=== PATIENT | female | born 1950 | race Caucasian/White ===

== ENCOUNTER 2018-06-19 08:34 | Outpatient (CLI) | payer MEDICARE ==
--- NOTE | 2018-06-19 15:25 | NM ---
NUCLEAR MEDICINE BRAIN IMAGING: Date: 06/19/18 CLINICAL HISTORY: Parkinson's disease. FINDINGS: There is symmetric uptake of the striata bilaterally with crescent-shaped activity demonstrated bilat erally. IMPRESSION: Normal exam. POS: [facility]
== END 2018-06-19 08:35 | disposition home or self-care (01) ==
LOC: NM 08:34
PROVIDERS: ATTEND Psychiatry & Neurology Neurology
DX: G20 Parkinson's disease (principal)
CPT/HCPCS: 78607; A9584

== ENCOUNTER 2022-08-03 07:38 | Outpatient (CLI) | payer MEDICARE | END 2022-08-03 07:39 | disposition home or self-care (01) | LOC: NM 07:38 | PROVIDERS: ATTEND Psychiatry & Neurology Neurology | DX: G20 Parkinson's disease (principal) | CPT/HCPCS: 78803; A9584 ×2 ==